=== PATIENT | female | born 1955 | race Caucasian/White ===

== ENCOUNTER → 2021-11-01 | Outpatient (CLI) | payer BC ==
[~2021-11-01] MED LIST: CELLCEPT500 MG PO; COREG 25MG TAB25 MG PO; COZAAR25 MG PO; ELIQUIS 2.5 MG2.5 MG PO; IMDUR ER TAB 6060 MG PO; MELATONIN3 MG PO; OS-CAL 500+D31 EACH PO; PERCOCET 5/325 T1 EA PO; PROGRAF1 MG PO; SYNTHROID150 MCG PO
== END ==
LOC: WCC 07:38
DX: I87.331 Chronic venous hypertension (idiopathic) with ulcer and inflammation of right lower extremity (principal); I87.2 Venous insufficiency (chronic) (peripheral); L97.912 Non-pressure chronic ulcer of unspecified part of right lower leg with fat layer exposed; E66.01 Morbid (severe) obesity due to excess calories; I73.9 Peripheral vascular disease, unspecified; I10 Essential (primary) hypertension; Z94.4 Liver transplant status; Z88.8 Allergy status to other drugs, medicaments and biological substances; Z91.040 Latex allergy status; Z79.899 Other long term (current) drug therapy; Z68.41 Body mass index [BMI] 40.0-44.9, adult

== ENCOUNTER → 2021-11-14 | Outpatient (CLI) | payer BC | END | disposition home or self-care (01) | LOC: WCC 08:29 | DX: I87.2 Venous insufficiency (chronic) (peripheral) (principal); L97.912 Non-pressure chronic ulcer of unspecified part of right lower leg with fat layer exposed; R60.0 Localized edema; I73.9 Peripheral vascular disease, unspecified; I10 Essential (primary) hypertension; E66.01 Morbid (severe) obesity due to excess calories; I87.311 Chronic venous hypertension (idiopathic) with ulcer of right lower extremity; Z94.4 Liver transplant status; Z79.899 Other long term (current) drug therapy; Z68.41 Body mass index [BMI] 40.0-44.9, adult ==

== ENCOUNTER → 2021-11-26 | Outpatient (CLI) | payer BC | LOC: WCC 07:22 | DX: I87.331 Chronic venous hypertension (idiopathic) with ulcer and inflammation of right lower extremity (principal); L97.912 Non-pressure chronic ulcer of unspecified part of right lower leg with fat layer exposed; I73.9 Peripheral vascular disease, unspecified; I10 Essential (primary) hypertension; E66.01 Morbid (severe) obesity due to excess calories; M79.661 Pain in right lower leg; Z94.4 Liver transplant status; Z68.41 Body mass index [BMI] 40.0-44.9, adult ==

== ENCOUNTER → 2021-12-10 | Outpatient (CLI) | payer BC | END | disposition home or self-care (01) | LOC: WCC 07:33 | DX: I87.2 Venous insufficiency (chronic) (peripheral) (principal); L97.912 Non-pressure chronic ulcer of unspecified part of right lower leg with fat layer exposed; R60.0 Localized edema; I73.9 Peripheral vascular disease, unspecified; I10 Essential (primary) hypertension; E66.01 Morbid (severe) obesity due to excess calories; Z94.4 Liver transplant status; Z79.899 Other long term (current) drug therapy; Z68.41 Body mass index [BMI] 40.0-44.9, adult ==

== ENCOUNTER → 2021-12-24 | Outpatient (CLI) | payer BC | LOC: WCC 07:42 | DX: I87.311 Chronic venous hypertension (idiopathic) with ulcer of right lower extremity (principal); I87.2 Venous insufficiency (chronic) (peripheral); L97.812 Non-pressure chronic ulcer of other part of right lower leg with fat layer exposed; R60.0 Localized edema; E66.01 Morbid (severe) obesity due to excess calories; I73.9 Peripheral vascular disease, unspecified; I10 Essential (primary) hypertension; Z94.4 Liver transplant status; Z88.8 Allergy status to other drugs, medicaments and biological substances; Z91.040 Latex allergy status ==